=== PATIENT | female | born 1950 | race Two or more races ===

== ENCOUNTER 2023-04-28 14:32 | Emergency (ER) | payer MEDICARE, OTHER ==
[~2023-04-28] VITALS: Ht 165.1 cm; Wt 87.6 kg
[2023-04-28 14:47] VITALS: O2SAT 97
[2023-04-28] MEDS ORDERED: LIDOCAINE 5% PATCH TOP SCH (16:45)
[2023-04-28] MEDS ORDERED: KETOROLAC 30MG/ML VIAL IM ONE (16:45)
[2023-04-28] MEDS ORDERED: TOPUD MT (16:54)
[2023-04-28] MEDS ORDERED: LIDO700A15 TP (16:54)
[2023-04-28 17:16] VITALS: BP 145/88; PULSE 88; RESP 18; TEMP 98.7
== END 2023-04-28 17:19 | disposition home or self-care (01) ==
LOC: ER 14:32
DX: S16.1XXA Strain of muscle, fascia and tendon at neck level, initial encounter (principal); S09.90XA Unspecified injury of head, initial encounter; M54.50 Low back pain, unspecified; E11.9 Type 2 diabetes mellitus without complications; E78.00 Pure hypercholesterolemia, unspecified; I10 Essential (primary) hypertension; V49.49XA Driver injured in collision with other motor vehicles in traffic accident, initial encounter; Y93.89 Activity, other specified; Y92.89 Other specified places as the place of occurrence of the external cause; Y99.8 Other external cause status
CPT/HCPCS: 99285; 70450; 72125; 72131; 96372; J1885